=== PATIENT | female | born 1960 | race African-American/Black ===

== ENCOUNTER 2016-10-20 10:28 | Emergency (ER) | payer OTHER ==
[~2016-10-20] VITALS: Ht 162.6 cm; Wt 72.5 kg
[~2016-10-20 10:28] MED LIST: ACET1CAP18 PO; AMLO5 PO; LOVA20TA PO
[2016-10-20 10:30] VITALS: PULSE 72; RESP 16; TEMP 97.7; O2SAT 95
--- NOTE | 2016-10-20 11:10 | PD ---
HPI Chief Complaint: Pain: Acute or Chronic Time Seen by Provider: 11:04 Travel History International Travel<30 days: No Contact w/Intl Traveler<30days: No Traveled to known affect area: No History of Present Illness HPI 56-year-old female presents to the emergency department with 2 complaints. Her first complaint is left elbow pain. Denies injury. Her second complaint is right fifth toe pain. Denies injury. Denies paresthesias, loss of sensation, decreased range of motion, decreased strength to both affected extremities. Denies swelling, erythema, edema to both the toe and of the elbow. Pain is aggravated with palpation to both. No known relieving factors. Dr. MorfinNish his primary care provider. No known allergies. History of hypertension. No other modifying factors or associated signs and symptoms. History Past Medical Histgory Tetanus Vaccination: Unknown Menopausal: Yes Hx Cancer: No Social History Alcohol Use: Yes (4 BEERS DAILY) Tobacco Use: Yes (1 PPD) Allergies-Medications (Allergen,Severity, Reaction): Coded Allergies: No Known Allergies (Verified , 10/20/16) Reported Meds & Prescriptions Reported Meds & Active Scripts Active Lovastatin 20 Mg Tab 20 Mg PO HS Norvasc (Amlodipine Besylate) 5 Mg Tab 5 Mg PO DAILY Review of Systems Except as stated in HPI: all other systems reviewed are Neg Physical Exam Narrative GENERAL: Well-nourished, well-developed -Chinese female patient, in no acute distress SKIN: Warm and dry. HEAD: Atraumatic. Normocephalic. EYES: Pupils equal and round. No scleral icterus. No injection or drainage. ENT: Mucosa pink and moist. Airway patent. NECK: Trachea midline. CARDIOVASCULAR: Regular rate. RESPIRATORY: No accessory muscle use. GASTROINTESTINAL: Obese. MUSCULOSKELETAL: Left elbow is without erythema, edema, ecchymosis; with full range of motion; no obvious deformity; without tenderness elicited on palpation. Left upper extremity supple and non-tense with 2+ radial pulse and sensory intact; with full strength. Right fifth toe with fungus toenail that is tender on palpation; the toes without erythema, edema or signs of infection; with sensory intact. No obvious deformities. No clubbing. No cyanosis. No edema. NEUROLOGICAL: Awake and alert. Oriented 3. No obvious cranial nerve deficits. Motor grossly within normal limits. Normal speech. PSYCHIATRIC: Appropriate mood and affect; insight and judgment normal. Data Data Last Documented VS Vital Signs Date Time Temp Pulse Resp B/P Pulse Ox O2 Delivery O2 Flow Rate FiO2 10/20/16 10:30 97.7 72 16 95 MDM Medical Screen Exam Complete: Yes Emergency Medical Condition: No Differential Diagnosis Elbow bursitis, arthritis, paronychia, ingrown toenail Narrative Course Vital signs are stable and the patient is stable for outpatient follow-up and treatment. The patient has no urgent or emergent medical complaints. There is no emergent or urgent medical need at this time. I instructed the patient to follow up with their primary care provider. A medical screening exam was performed: At the time of evaluation the presenting medical condition was determined not to be of an emergent nature. The patient was given the option of receiving additional care, but declined. Patient was given options for additional community resources from which to obtain care. The Patient Has Been advised to seek medical attention for their presenting complaint. The patient has been advised to return to the ER at any time if an emergent condition develops. Primary Impression: Encounter for medical screening examination Condition: Stable Karina Nix ROLLING ATTENDANT Oct 20, 2016 11:10
[2016-10-22] MEDS ORDERED: LOVA20TA PO (11:09)
[2016-10-22] MEDS ORDERED: AMLO5 PO (11:12)
[2016-11-11] MEDS ORDERED: TYLETAB34 PO (12:08)
== END 2016-10-20 11:20 | disposition left against medical advice (07) ==
LOC: NEPK 10:28
DX: M25.522 Pain in left elbow (principal); M79.674 Pain in right toe(s)
CPT/HCPCS: 99281

== ENCOUNTER → 2016-10-22 | Outpatient (CLI) | payer OTHER ==
[~2016-10-22] MED LIST changes: -ACET1CAP18 PO; +TYLETAB34 PO
--- NOTE | 2016-10-22 12:50 | RADRPT ---
EXAM DATE/TIME: 10/22/2016 12:18 [facility] COMPARISON: No previous studies available for comparison. INDICATIONS : Right foot 5th digit pain, no known injury. MEDICAL HISTORY : None. SURGICAL HISTORY : None. ENCOUNTER: Initial ACUITY: 2 weeks PAIN SCORE: 10/10 LOCATION: Right foot 5th digit FINDINGS: Examination of the fifth digit of the right foot demonstrates no evidence of fracture or dislocation. No radiopaque foreign bodies are seen. The soft tissues are intact. CONCLUSION: No acute disease. Louis Cortez MD on October 22, 2016 at 12:49 Board Certified Radiologist. This report was verified electronically.
== END ==
LOC: HRAD 12:06
PROVIDERS: ATTEND Family Medicine
DX: M79.674 Pain in right toe(s) (principal)
CPT/HCPCS: 73660

== ENCOUNTER → 2016-11-12 | Outpatient (CLI) | payer OTHER | LOC: CLAB 10-22 11:46 | PROVIDERS: ATTEND Family Medicine | DX: R29.898 Other symptoms and signs involving the musculoskeletal system (principal) | CPT/HCPCS: 36415; 86038 ==

== ENCOUNTER → 2017-03-18 | Outpatient (CLI) | payer OTHER ==
[~2017-03-18] MED LIST changes: +METR-1 PO
[2017-03-18 12:03] LABS: AUTOMATED NEUTROPHIL # 1.9 TH/MM3 (1.8-7.7); BASOPHIL % 0.6 % (0.0-2.0); HEMO FLAGS DIFF FINAL; LYMPH % 51.9 % (9.0-44.0); LYMPHOCYTE # 2.6 TH/MM3 (1.0-4.8); MEAN CELL VOLUME 94.9 FL (80.0-100.0); MEAN CORPUSCULAR HEMOGLOBIN 32.4 PG (27.0-34.0); MEAN CORPUSCULAR HGB CONC 34.2 % (32.0-36.0); MONO % 9.1 % (0.0-8.0); NEUT % 37.4 % (16.0-70.0); PLATELET COUNT 216 TH/MM3 (150-450); RED BLOOD COUNT 4.32 MIL/MM3 (4.00-5.30); RED CELL DISTRIBUTION WIDTH 14.2 % (11.6-17.2)
[2017-03-18 12:10] LABS: ANION GAP 5 MEQ/L (5-15); AST (GOT) 13 U/L (15-37); BICARBONATE 28.9 MEQ/L (21.0-32.0); BLOOD UREA NITROGEN 10 MG/DL (7-18); CHLORIDE 106 MEQ/L (98-107); GLOMERULAR FILTRATION RATE 59 ML/MIN (>89); GLUCOSE,FASTING 82 MG/DL (74-99); POTASSIUM 3.9 MEQ/L (3.5-5.1); SODIUM (NA) 140 MEQ/L (136-145)
[2017-03-18 12:11] LABS: ALT (GPT) 21 U/L (10-53)
[2017-03-18 12:21] LABS: ALKALINE PHOSPHATASE 72 U/L (45-117); HDL CHOLESTEROL 49.3 MG/DL (40.0-60.0); LDL CHOLESTEROL 68 MG/DL (0-99); TOTAL BILIRUBIN ADULT 0.3 MG/DL (0.2-1.0)
== END ==
LOC: CLAB 11:01
PROVIDERS: ATTEND Family Medicine
DX: I10 Essential (primary) hypertension (principal); E78.5 Hyperlipidemia, unspecified; R29.898 Other symptoms and signs involving the musculoskeletal system; F17.210 Nicotine dependence, cigarettes, uncomplicated
CPT/HCPCS: 36415; 80053; 80061; 84443; 85025